=== PATIENT | male | born 1965 | race Caucasian/White ===

== ENCOUNTER 2025-03-04 06:27 | Day surgery (SDC) | payer BC, SELFPAY ==
[2025-02-20 09:24] LABS: Hematocrit 43.9 % (39.0-52.0); Hemoglobin 15.0 g/dL (13.0-18.0); Mean Corp Hgb Conc. 34.2 g/dL (33.0-37.0); Mean Corpuscular Volume 92.4 fL (80.0-94.0); Platelet Count 230 10^3/uL (130-400); Red Cell Dist. Width 11.8 % (11.5-14.5)
[2025-02-20 09:38] LABS: Blood Urea Nitrogen 18 mg/dl (9-20); Calcium 9.8 mg/dl (8.4-10.2); Carbon Dioxide 29 mmol/L (22-30); Chloride 101 mmol/L (98-107); Glucose 98 mg/dl (70-99); Potassium 4.6 mmol/L (3.5-5.1); Sodium 136 mmol/L (135-145); eGFR > 60.00
[2025-02-20 14:03] VITALS: BMI 31.1
[2025-03-04] VITALS (7 sets, daily range): BP systolic 131–162; BP diastolic 75–84; BMI 31.1
[2025-03-04] MEDS: TYLENOL 1000 MG PO (08:04)
[2025-03-04] MEDS: NORMOSOL-R/PLASMALYTE-A 1000 IV (08:07)
== END 2025-03-04 11:43 | disposition home or self-care (01) ==
LOC: SDS 06:27
PROVIDERS: ATTENDING PHYSICIAN Surgery; FAMILY PHYSICIAN Internal Medicine
DX: K42.9 Umbilical hernia without obstruction or gangrene (principal)
CPT/HCPCS: 49591; 80048; 85027; 93005